=== PATIENT | male | born 1955 | race Caucasian/White ===

== ENCOUNTER 2022-03-04 11:43 | Inpatient (IN) | payer OTHER ==
[~2022-03-04] VITALS: Ht 172.7 cm; Wt 56.7 kg
--- NOTE | 2022-03-04 11:49 | NUR ---
[id number] FROM [facility] FOR NOTED BLEEDING/DRAINAGE FROM FACIAL ABSCESS x 5DAYS. TO ER BED 8, HOOKED TO MONITOR, CHANGED TO HOSP GOWN, WARM BLANKET PROVIDED. PATIENT AAOx4. BREATHING EVEN AND UNLABORED. AWAITING MD NORIEGA.
--- NOTE | 2022-03-04 12:00 | NUR ---
DR MACHADO AT BEDSIDE
[2022-03-04 12:19] LABS: BASOPHILS # (AUTO) 0.1 K/uL (0.0-0.2); BASOPHILS % (AUTO) 0.3 % (0.0-2.0); EOSINOPHILS % (AUTO) 5.2 % (0.0-6.0); HEMATOCRIT 29 % (39-51); HEMOGLOBIN 9.6 g/dL (13.5-17.5); LYMPHOCYTES # (AUTO) 1.1 K/uL (0.8-4.8); LYMPHOCYTES % (AUTO) 3.5 % (20.0-44.0); MEAN CORPUSCULAR HGB CONC 33 g/dl (31.0-36.0); MEAN CORPUSCULAR VOLUME 89 fL (80-96); MONOCYTES # (AUTO) 1.2 K/uL (0.1-1.30); MONOCYTES % (AUTO) 4.1 % (2.0-12.0); NEUTROPHILS # (AUTO) 26.3 K/uL (1.8-8.9); NEUTROPHILS % (AUTO) 86.9 % (43.0-81.0); PLATELET COUNT (AUTO) 595 K/uL (150-450); RED BLOOD CELL COUNT(AUTO) 3.25 MIL/uL (4.5-6.0)
[2022-03-04 12:27] LABS: WHITE BLOOD COUNT (AUTO) 30.2 K/uL (4.3-11.0)
[2022-03-04 12:44] LABS: CREATININE 1.4 mg/dL (0.6-1.3); POTASSIUM 3.9 mmol/L (3.5-5.1)
[2022-03-04 12:49] LABS: ALBUMIN 3.2 g/dL (3.4-5.0); BILIRUBIN,DIRECT 0.1 mg/dL (0.0-0.2); BILIRUBIN,TOTAL 0.4 mg/dL (0.2-1.0); TOTAL PROTEIN, SERUM 7.5 g/dL (6.4-8.2)
[2022-03-04 12:53] LABS: CALCIUM, SERUM 13.5 mg/dL (8.5-10.1)
--- NOTE | 2022-03-04 12:57 | NUR ---
MOVE SHEET SUBMITTED.
[2022-03-04] MEDS ORDERED: VANCOMYCIN 1 GM in IV D5W 250 ML IV ONE (13:00)
[2022-03-04] MEDS ORDERED: CEFEPIME 1 GM in IV D5W 50 ML IV ONE (13:00)
--- NOTE | 2022-03-04 13:07 | NUR ---
RAPID COVID SWAB DONE AND SENT TO LAB
[2022-03-04] MEDS ORDERED: HYDR-4303 PO (13:24)
[2022-03-04] MEDS ORDERED: MULT-447 PO (13:24)
[2022-03-04] MEDS ORDERED: SENN-261 PO (13:24)
[2022-03-04] MEDS ORDERED: DOCU-141 PO (13:24)
[2022-03-04] MEDS ORDERED: HYDR-4209 PO (13:24)
[2022-03-04] MEDS ORDERED: TEMA15CA5 PO (13:24)
[2022-03-04] MEDS ORDERED: FERR325T23 PO (13:24)
[2022-03-04] MEDS ORDERED: LISI10TA29 PO (13:24)
[2022-03-04] MEDS ORDERED: NAPR-1009 PO (13:24)
[2022-03-04] MEDS ORDERED: ACET-868 PO (13:24)
--- NOTE | 2022-03-04 13:29 | NUR ---
[facility] CALLED OSHA INSPECTOR PAGED.
--- NOTE | 2022-03-04 13:51 | NUR ---
DECLINED EKG, AWARE
--- NOTE | 2022-03-04 13:57 | NUR ---
INSURANCE COLLECTOR AT BEDSIDE
[2022-03-04] MEDS ORDERED: IV NS 0.9% 1,000 ML BAG IV ONE (14:00)
--- NOTE | 2022-03-04 14:54 | NUR ---
BED 323-1
--- NOTE | 2022-03-04 14:57 | NUR ---
CALLED FOR REPORT, NURSE NOT AVAILABLE, WILL CALL BACK IN 5MIN
--- NOTE | 2022-03-04 15:12 | NUR ---
REPORT GIVEN TO MANSOOR BISWAS OF [facility]
[2022-03-04] MEDS ORDERED: MAGNESIUM HYDROXIDE 30 ML UDC PO PRN (16:00)
[2022-03-04] MEDS ORDERED: ACETAMINOPHEN 325 MG TABLET PO PRN ×2 (16:00)
[2022-03-04] MEDS ORDERED: Z GUARD REMEDY 4 OZ OINT TP PRN (16:00)
[2022-03-04] MEDS ORDERED: ZOLPIDEM TARTRATE 5 MG TABLET PO PRN (16:00)
[2022-03-04] MEDS ORDERED: ONDANSETRON HCL/PF 4 MG/2 ML VIAL IVP PRN (16:00)
[2022-03-04] MEDS ORDERED: HYDROCODONE/APAP 5/325MG TABLET PO PRN (16:00)
[2022-03-04] MEDS ORDERED: MORPHINE SULFATE INJ 2 MG/ML DISP.SYRIN IV PRN (16:00)
[2022-03-04] MEDS ORDERED: MAG HYDROX/AL HYDROX/SIMETH 30 ML UDC PO PRN (16:00)
[2022-03-04 17:52] VITALS: BP 134/83
--- NOTE | 2022-03-04 18:30 | NUR ---
RN ADMITTING/CLOSING NOTE RECEIVED PATIENT VIA [facility] @3342, PATIENT ACCOMPANIED BY 2 ER STAFF. PATIENT STABLE ON ROOM AIR, NO S/S OF RESPIRATORY DISTRESS NOTED. PATIENT A/Ox4 ABLE TO MAKE NEEDS KNOWN. IV ACCESS R AC #20 INTACT AND PATENT SL. PATIENT V/S TAKEN, STABLE. FULL BODY CHECK COMPLETED: CARDIAC HEART SOUNDS WNL, RESPIRATORY LUNG SOUNDS WNL, GI/ WNL, SKIN: R NECK HAS LARGE DRAINING AREA. PHOTOS TAKEN AND FILED INTO CHART. SAFETY MEASURES MAINTAINED: BED LOCKED AND IN LOWEST POSITION, HOB ELEVATED, CALL LIGHT WITHIN REACH. WILL ENDORSE TO NEXT SHIFT ANY AUGUST.
[2022-03-04 20:00] VITALS: BP 131/78
--- NOTE | 2022-03-04 20:05 | NUR ---
MS RN OPENING NOTES: RECEIVED PATIENT AWAKE INBED, BED IN LOW POSITION, CALL LIGHTS WITHIN REACH, NO COMPLAIN OF PAIN AND DISCOMFORT AT THIS TIME ON ROOM AIR SATURATING WELL, PATIENT IS A/OX4 ABLE TO MAKE NEEDS KNOWN ON ROOM AIR SATURATING WELL, WITH IV LINE AT RAC#20 WITH ONGOING NSS@75ML/HR INFUSING WELL, PATIENT KEPT CLEAN AND DRY ALL NEEDS MET ENDORSE TO INCOMING SHIFT.
[2022-03-04] MEDS: IV NS 0.9% 1,000 ML IV PRN (20:44)
[2022-03-04] MEDS: HYDROMORPHONE 1 MG/1 ML DISP.SYRIN IV PRN (20:52)
[2022-03-04 21:52] LABS: BAND % (MANUAL) 5 % (0.0-5.0); EOSINOPHILS % (MANUAL) 4 % (0-4); LYMPHOCYTES % (MANUAL) 8 % (16-48); MONOCYTES % (MANUAL) 1 % (0-11.0); NEUTROPHILS % (MANUAL) 82 (42-76)
[2022-03-04] MEDS: TEMAZEPAM 15 MG CAPSULE PO SCH (22:09)
[2022-03-04] MEDS: FERROUS SULFATE (325 MG) 325 MG/TAB TABLET PO SCH (22:09)
--- NOTE | 2022-03-04 22:16 | NUR ---
RN NOTES: PATIENT REFUSED NIGHT MEDICATION OFFERED 2X EXPLAIN RISK AND BENEFITS BUT PATIENT REFUSED TO TAKE MEDICATION ON CRUSH MEDS.
[2022-03-05] MEDS: HYDROMORPHONE 1 MG/1 ML DISP.SYRIN IV PRN ×2 (01:58→11:41)
--- NOTE | 2022-03-05 04:30 | NUR ---
RN NOTES: PATIENT WAS NOTED WITH BLEEDING ON THE NECK, REPLACED COVER WITH TOWEL, OFFERED PATIENT TO CLEAN AND PLACED AND ABDOMINAL PADSTO PREVENT INFECTION PATIENT REFUSE CHARGE NURSE MADE AWARE.
--- NOTE | 2022-03-05 05:35 | NUR ---
RN NOTES: PATIENT REFUSED BLOOD DRAWN FOR LAB USE EXPLAIN RISK AND BENEFITS BUT PATIENT REFUSED REMIND CORRECTIONS SERGEANT TO TRY TO ATTEMPT TO OFFER AGAIN AT A LATER TIME. WILL CONTINUE TO MONITOR.
--- NOTE | 2022-03-05 06:43 | NUR ---
RN CLOSING NOTES: RECEIVED PATIENT AWAKE IN BED, BED IN LOW POSITION CALL LIGHTS WITHIN REACH, NO COMPLAIN OF PAIN AND DISCOMFORT AT THIS TIME, ON ROOM AIR SATURATING WELL, PATIENT IS A/OX4 ABLE TO MAKE NEEDS KNOWN, WITH IV LINE AT RAC#20 WITH ONGOING NSS@75ML/HR INFUSING WELL, PATIENT REFUSED DRESSING TO BE PLACED ON OPEN SKIN OF THE RIGHT NECK, PATIENT KEPT CLEAN AND DRY ALL NEEDS MET ENDORSE TO INCOMING SHIFT.
[2022-03-05] MEDS: HYDROCODONE/APAP 10/325MG TABLET PO PRN ×2 (07:36→20:50)
--- NOTE | 2022-03-05 07:52 | NUR ---
RN OPENING NOTE-PATIENT AWAKE IN BED, BED IN LOW POSITION, CALL LIGHT WITHIN REACH, PT MEDICATED W NORCO 10 FOR PAIN. 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 EXPLAINED BENEFITS OF DRESSING. WOUND CARE TO SEE THIS AM. PATIENT KEPT CLEAN AND DRY. MONITOR / ASSIST
[2022-03-05] MEDS: DOCUSATE SODIUM 100 MG CAPSULE PO SCH ×2 (08:19→08:26)
[2022-03-05] MEDS: SENNOSIDES 8.6 MG TABLET PO SCH ×2 (08:19→08:26)
[2022-03-05] MEDS: LISINOPRIL (10MG) 10 MG TABLET PO SCH (08:20)
[2022-03-05] MEDS: IV NS 0.9% 1,000 ML IV PRN (08:58)
[2022-03-05] MEDS: NAPROXEN 500 MG TABLET PO SCH (08:58)
--- NOTE | 2022-03-05 11:53 | NUR ---
RN NOTE ATTEMPTED AGAIN TO CLEAN AND APPLY DRESSING TO SQUAMOUS CELL CARCINOMA TO NECK. PT OPPOSITIONAL AND REFUSES. PATIENT CONTINUES TO KEEP TOWEL WRAPPED AROUND NECK. DISCUSSED BENEFITS OF CLEAN, STERILE DRESSING. PATIENT REFUSES. WILL ATTEMPT AGAIN LATER.
[2022-03-05] MEDS: CEFEPIME 1 GM in IV D5W 50 ML IV SCH (13:00)
[2022-03-05] MEDS: VANCOMYCIN 1 GM in IV D5W 250ml IV SCH (14:00)
--- NOTE | 2022-03-05 14:23 | NUR ---
RN NOTE- PT REMOVED IV SITE. REFUSING MEDS AND CARE,REFUSING DRESSING FOR WOUND. MD AWARE
--- NOTE | 2022-03-05 17:50 | NUR ---
RN NOTE- PT REFUSES WOUND CARE OR DRESSING TO SQUAMOUS CELL CA AGAIN AT THIS TIME.
--- NOTE | 2022-03-05 18:53 | NUR ---
RN CLOSING NOTES PATIENT CONTINUES TO BE OPPOSITIONAL TO ALL CARE. DRESSING CHANGES, VITAL SIGNS, IV MEDICATIONS AND MOST MEDICATIONS. PO INTAKE FAIR, IN NO ACUTE DISTRESS, DENIES PAIN. ALERT AND ORIENTED TO PERSON AND PLACE. WAS TOLD BY CM THAT PATIENT MAY GO TO ANOTHER FACILITY, AWAITING INFORMATION. SIDE RAILS UP, BED LOCKED, CALL LIGHT IN REACH.
--- NOTE | 2022-03-05 19:57 | NUR ---
MS RN OPENING NOTES: RECEIVED PATIENT SLEEP IN BED COMFORTABLY, AROUSABLE TO VERBAL STIMULI, BED IN LOW POSITION, CALL LIGHTS WITHIN REACH, NO COMPLAIN OF PAIN AND DISCOMFORT AT THIS TIME, ON ROOM AIR SATURATING WELL, PATIENT REFUSED IV LINE DURING THE AM SHIFT, WILL TRY TO OFFER, PATIENT KEPT CLEAN AND DRY ALL NEEDS MET WILL CONTINUE TO MONITOR.
[2022-03-05 20:00] VITALS: BP 119/71
[2022-03-05 21:02] VITALS: BP 119/71
[2022-03-05] MEDS: TEMAZEPAM 15 MG CAPSULE PO SCH (22:14)
[2022-03-05] MEDS: FERROUS SULFATE (325 MG) 325 MG/TAB TABLET PO SCH (22:14)
--- NOTE | 2022-03-06 06:08 | NUR ---
RN CLOSING NOTES: PATIENT SLEEP IN BED COMFORTABLY, AROUSABLE TO VERBAL STIMULI, BED IN LOW POSITION CALL LIGHTS WITHIN REACH, NO COMPLAIN OF PAIN AND DISCOMFORT AT THIS TIME, ON ROOM AIR SATURATING WELL , PATIENT IS A/OX4 ABLE TO MAKE NEEDS KNOWN, NO IV LINE STANDBY PATIENT REFUSED IV INSERTION, PATIENT KEPT CLEAN AND DRY ALL NEEDS MET ENDORSE TO INCOMING SHIFT.
--- NOTE | 2022-03-06 07:27 | NUR ---
RN OPENING NOTES PATIENT IS AWAKE IN BED, ALERT/ORIENTED TO PERSON AND PLACE. DRINKING WATER, INTERACTIVE, DENIES PAIN. HAS TOWEL COVERING SQUAMOUS CELL CARCINOMA COVERING NECK, REFUSES DRESSING. WILL ATTEMPT LATER. SIDE RAILS UP, BED LOCKED, CALL LIGHT IN REACH, WILL MONITOR AND ASSIST.
[2022-03-06 08:28] VITALS: BP 100/67
[2022-03-06 08:44] VITALS: BP 100/67
[2022-03-06] MEDS: LISINOPRIL (10MG) 10 MG TABLET PO SCH (08:44)
[2022-03-06] MEDS: NAPROXEN 500 MG TABLET PO SCH (08:47)
[2022-03-06] MEDS: SENNOSIDES 8.6 MG TABLET PO SCH (08:51)
[2022-03-06] MEDS: DOCUSATE SODIUM 100 MG CAPSULE PO SCH (08:51)
--- NOTE | 2022-03-06 10:31 | NUR ---
WOUND CARE CONSULT: PT PRESENTS WITH LARGE DRAINING LESION TO RT FACE AND TO NECK, PRESENT ON ADMISSION. RECOMMENDATIONS MADE FOR WOUND CARE AND SKIN PROTECTION. DISCUSSED WITH NURSING STAFFF. PT WAS SEEN BY SURGEON. IN AGREEMENT WITH PLAN OF CARE. Addendum: 03/06/22 at 1034 by CHELO BLANCO WNDNU Amended: Links added.
[2022-03-06] MEDS: HYDROCODONE/APAP 10/325MG TABLET PO PRN (12:01)
[2022-03-06] MEDS: CEFEPIME 1 GM in IV D5W 50 ML IV SCH (13:00)
--- NOTE | 2022-03-06 13:49 | NUR ---
RN NOTE PATIENT TOOK OUT THE IV AND REFUSES NEW IV INSERTION. NOT ABLE TO ADMINISTER IV MEDS.
[2022-03-06] MEDS: VANCOMYCIN 1 GM in IV D5W 250ml IV SCH (14:00)
--- NOTE | 2022-03-06 18:39 | NUR ---
RN NOTE- DISCHARGE / TRANSFER TO [facility] AT THIS TIME VIA [facility]. REPORT GIVEN TO OLGA. VS STABLE. REFUSED PHOTOGRAPHS. REFUSED DRESSING CHANGE. WRISTBAND REMOVED. BELONGINGS SENT W PT.
== END 2022-03-06 18:53 | disposition short-term general hospital (02) | DRG 110 ==
LOC: ER 11:45 → MED 15:43
PROVIDERS: ADMIT Internal Medicine; ATTEND Internal Medicine
DX: C76.0 Malignant neoplasm of head, face and neck (principal); E43 Unspecified severe protein-calorie malnutrition; R64 Cachexia; E87.2 Acidosis; E88.09 Other disorders of plasma-protein metabolism, not elsewhere classified; L03.221 Cellulitis of neck; D64.9 Anemia, unspecified; E83.52 Hypercalcemia; I10 Essential (primary) hypertension; Z79.899 Other long term (current) drug therapy
CPT/HCPCS: 36415; 71045-TC; 76770-TC; 80048-TC; 80076-TC; 83605-TC; 85025-TC; 85730-TC; 86850-TC; 87040-TC; 87081-TC; A6253; A6403; C9803; G0378; J0692; J1170; J3370; J7030; J7060